=== PATIENT | male | born 1945 | race Caucasian/White ===

== ENCOUNTER 2018-02-21 15:36 | Outpatient (CLI) | payer BC ==
[2018-02-21 16:20] LABS: Mean Corpuscular HGB CONC 33.7 g/dL (32.0-36.0); Mean Corpuscular Hemoglobin 31.8 pg (27.0-31.0); Mean Corpuscular Volume 94.3 fl (80.0-94.0); Mean Platelet Volume 8.2 fL (7.4-10.4); Platelet Count 222 thou/uL (130-400); RBC Distribution Width 12.1 % (11.5-14.5); Red Blood Cell (RBC) Count 3.77 mill/uL (4.70-6.10); White Blood Cell (WBC) Count 6.3 thou/uL (4.8-10.8)
[2018-02-21 16:30] LABS: Bilirubin Negative (Negative); Blood, Urine Negative (Negative); Clarity CLEAR (Clear); Glucose, Urine (Dipstick) Negative (Negative); Leukocyte Negative (Negative); Nitrite Negative (Negative); Protein, Urine (Dipstick) Negative (Neg-Trace); Specific Gravity, Urine 1.022 (1.002-1.036); Urobilinogen 0.2 mg/dL (0.2-1.0); pH, Urine 6.5 (5.0-9.0)
[2018-02-21 16:32] LABS: Bacteria/HPF None Seen HPF (None Seen); Hyaline Casts/LPF 0-3 HYALINE CAST LPF (0-3 Hyaline); RBC/HPF 0-3 HPF (0-3); Squamous Epithelial None Seen HPF (0-3); WBC/HPF None Seen HPF (0-3)
[2018-02-21 16:33] LABS: PTT 28.9 SEC (22.9-36.1)
[2018-02-21 16:47] LABS: Anion Gap 13 mmol/L (10-20); BUN (Urea Nitrogen) 26 mg/dL (8.4-25.7); Calc. Creatinine Clearance 0 mL/min (70-130); Calcium 8.9 mg/dL (7.8-10.44); Carbon Dioxide 23 mmol/L (23-31); Chloride 107 mmol/L (98-107); Estimated GFR-MDRD 55; Glucose 89 mg/dL (83-110); Potassium 3.8 mmol/L (3.5-5.1); Sodium 139 mmol/L (136-145)
--- NOTE | 2018-02-25 08:47 | EKG ---
Test Reason : Blood Pressure : / mmHG Vent. Rate : 061 BPM Atrial Rate : 061 BPM P-R Int : 176 ms QRS Dur : 082 ms QT Int : 402 ms P-R-T Axes : 074 017 074 degrees QTc Int : 404 ms Normal sinus rhythm Normal ECG When compared with ECG of 26-MAY-2015 14:24, No significant change was found Confirmed by STEPHAN PLAZA MD ([id number]) on 02/25/2018 8:46:44 AM Referred By: MANI Confirmed By:STEPHAN PLAZA MD
== END 2018-02-21 15:37 | disposition home or self-care (01) ==
LOC: LABBT 15:36
PROVIDERS: ATTEND Urology
DX: Z01.818 Encounter for other preprocedural examination (principal); N40.1 Benign prostatic hyperplasia with lower urinary tract symptoms
CPT/HCPCS: 80048; 81001; 85027; 85610; 85730; 87086; 93005; 93010

== ENCOUNTER 2018-03-05 16:48 | Outpatient (CLI) | payer BC | END 2018-03-05 16:49 | disposition home or self-care (01) | LOC: LABBT 16:48 | PROVIDERS: ATTEND Urology | DX: Z01.818 Encounter for other preprocedural examination (principal); N40.1 Benign prostatic hyperplasia with lower urinary tract symptoms | CPT/HCPCS: 86850; 86900; 86901 ==

== ENCOUNTER 2018-03-08 07:12 | Observation (INO) | payer BC ==
[2018-02-21 16:10] VITALS: BMI 23.4
[2018-03-08] MEDS ORDERED: Levofloxacin 500 mg/D5W 100 ml Premix Bag ONE (09:24)
[2018-03-08] MEDS ORDERED: Fentanyl 250 MCG/5 ML VIAL ONE (09:59)
[2018-03-08] MEDS ORDERED: B & O ONE (11:24)
[2018-03-08] MEDS ORDERED: Mag-Al 1200 mg/1200 mg/30 ML UDCUP PO PRN (11:44)
[2018-03-08] MEDS ORDERED: Acetaminophen 500 MG TAB PO PRN (11:44)
[2018-03-08] MEDS ORDERED: hydrALAZINE 20 MG/ML VIAL SLOW IVP PRN (11:44)
[2018-03-08] MEDS ORDERED: Hyoscyamine Sulfate SL 0.125 mg Tablet SL PRN (11:44)
[2018-03-08] MEDS ORDERED: Oxybutynin 5 MG TAB PO PRN (11:44)
[2018-03-08] MEDS ORDERED: diphenhydrAMINE 25 MG CAP PO PRN (11:44)
[2018-03-08] MEDS ORDERED: Morphine 4 MG/ML VIAL SLOW IVP PRN ×2 (11:44)
[2018-03-08] MEDS ORDERED: Ondansetron HCl/PF 4 MG/2 ML Vial IVP PRN ×2 (11:44→13:02)
[2018-03-08] MEDS ORDERED: traMADol HCl 50 MG TAB PO PRN (11:50)
--- NOTE | 2018-03-08 11:59 | OP ---
DATE OF PROCEDURE: 03/08/2018 SURGEON: Guevara Cristobal M.D. PREOPERATIVE DIAGNOSIS: Benign prostatic hypertrophy. POSTOPERATIVE DIAGNOSIS: Benign prostatic hypertrophy. PROCEDURE PERFORMED: Transurethral vaporization of the prostate with button bipolar electrode. INDICATIONS FOR PROCEDURE: Mr. Taylor is a 72-year-old white male with BPH and significant urina ry symptoms, which are only partially alleviated with Flomax and finasteride. He no longer wishes to take these medications and has elected to go forward with transurethral vaporization of the prostate with a button electrode. Risks and benefits of surgery have been discussed and he has agreed to pro ceed forward. DESCRIPTION OF PROCEDURE: After identification of armband and verification of consent, the patient w as brought back to the operating room where he underwent general anesthesia with endotracheal intubat ion. He was then placed in dorsal lithotomy position and prepped and draped in usual sterile fashion . After appropriate timeout, the meatus was dilated gently using a Lilliam sounds from approximate ly 22 [place] up to 30 [place]. This allowed passage of a 26-Bolivian resectoscope sheath with visual ob turator easily into the bladder. 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 Once inside the bladder, th e visual obturator was removed and the bipolar gyrus button was attached and reinserted back into the bladder. Both ureters were noted to be in the orthotopic location. Vaporization was started on the lateral lobes on both sides and vaporized down to near the capsule. There was no significant median lobe, but there was a significant median ridge. A transurethral incision of the bladder neck was pe rformed with the button electrode until the bladder neck was flush with the remainder of the bladder. The intervening tissue was vaporized using the button electrode. Vaporization was carried out circ umferentially until we were near the capsule laterally and the floor of the prostate was flushed with the bladder. Some vaporization was carried out anteriorly for some overhanging tissue. Upon comple tion, the prostate was wide open. The prosthetic fossa was bipolared extensively with the coag funct ion to try for as much hemostasis as possible. Visualization back into the bladder demonstrated no p rostate chips and both ureters were unharmed in their orthotopic location. The bladder was left full and the resectoscope removed. A 22-[place] three-way Giles [facility] and 30 mL of sterile water placed into the balloon. CBI was initiated and the catheter affixed wi th a StatLock. A 16-A B&O suppository was placed in the patient's rectum. He was then taken out of lithotomy, awakened and taken to PACU for recovery in stable condition. COMPLICATIONS: None. ESTIMATED BLOOD LOSS: Minimal. RETAINED TUBES AND DRAINS: A 22-[place]iv[place] three-way Giles catheter. SPECIMENS: None. DISPOSITION: The patient will be kept in the hospital overnight observation for continuous bladder i rrigation. This will be stopped in the morning. He will undergo void trial and can be discharged ho ga afterwards.
[2018-03-08] MEDS ORDERED: Fentanyl 100 MCG/2 ML VIAL ONE ×2 (12:15→13:21)
[2018-03-08] MEDS ORDERED: Glycopyrrolate 0.2 MG/ML 5 ML SYRINGE ONE (12:57)
[2018-03-08] MEDS ORDERED: ePHEDrine/0.9% NaCl/PF SYRINGE 50 mg/10 ml ONE (12:57)
[2018-03-08] MEDS ORDERED: Lidocaine 1% PF 5 ML VIAL ONE (12:57)
[2018-03-08] MEDS ORDERED: Dexamethasone 20 MG/5 ML VIAL ONE (12:57)
[2018-03-08] MEDS ORDERED: PROPOFOL 200 MG/20 ML VIAL ONE (12:57)
[2018-03-08] MEDS ORDERED: Promethazine HCl 25 MG/ML VIAL IM PRN (13:02)
[2018-03-08] MEDS ORDERED: Promethazine HCl 25 MG/ML VIAL SLOW IVP PRN (13:02)
[2018-03-08] MEDS ORDERED: Promethazine HCl 25 MG/ML VIAL ONE (13:50)
[2018-03-08 14:26] LABS: Anion Gap 5 mmol/L (10-20); BUN (Urea Nitrogen) 20 mg/dL (8.4-25.7); Calc. Creatinine Clearance 60 mL/min (70-130); Carbon Dioxide 28 mmol/L (23-31); Chloride 108 mmol/L (98-107); Estimated GFR-MDRD 67; Glucose 103 mg/dL (83-110); Potassium 3.9 mmol/L (3.5-5.1); Sodium 137 mmol/L (136-145)
[2018-03-08] MEDS ORDERED: Icosapent Ethyl [Vascepa] 2 GM PO SCH (17:00)
[2018-03-08] MEDS ORDERED: UBIDECARENONE 20 MG PO SCH (21:00)
[2018-03-08] MEDS: NIFEdipine XL 30 MG TAB PO SCH (22:22)
[2018-03-08] MEDS: Docusate 100 MG CAP PO SCH (22:22)
[2018-03-09 05:01] LABS: #Lymphocytes 1.7 thou/uL (1.20-3.40); #Monocytes 0.9 thou/uL (0.11-0.59); #Neutrophils 7.9 thou/uL (1.40-6.50); %Basophils 0.1 % (0.0-1.0); %Eosinophils 0.3 % (0.0-10.0); %Lymphocytes 15.9 % (21.0-51.0); %Monocytes 8.5 % (0.0-10.0); %Neutrophils 75.2 % (42.0-75.0); Hemoglobin 11.7 g/dL (14.0-18.0); Mean Corpuscular HGB CONC 33.1 g/dL (32.0-36.0); Mean Corpuscular Volume 93.7 fl (80.0-94.0); Mean Platelet Volume 7.9 fL (7.4-10.4); Platelet Count 224 thou/uL (130-400); RBC Distribution Width 12.4 % (11.5-14.5); Red Blood Cell (RBC) Count 3.77 mill/uL (4.70-6.10); White Blood Cell (WBC) Count 10.5 thou/uL (4.8-10.8)
[2018-03-09 05:11] LABS: Anion Gap 9 mmol/L (10-20); BUN (Urea Nitrogen) 21 mg/dL (8.4-25.7); Calc. Creatinine Clearance 53 mL/min (70-130); Calcium 8.8 mg/dL (7.8-10.44); Carbon Dioxide 27 mmol/L (23-31); Chloride 104 mmol/L (98-107); Estimated GFR-MDRD 58; Glucose 117 mg/dL (83-110); Potassium 3.7 mmol/L (3.5-5.1); Sodium 136 mmol/L (136-145)
[2018-03-09] MEDS ORDERED: Levothyroxine Sodium 100 MCG TAB PO SCH (06:00)
[2018-03-09] MEDS ORDERED: Loratadine 10 MG TAB PO SCH (09:00)
[2018-03-09] MEDS: Docusate 100 MG CAP PO SCH (09:13)
[2018-03-09] MEDS: NIFEdipine XL 30 MG TAB PO SCH (09:14)
--- NOTE | 2018-03-09 09:16 | PRG ---
DATE OF SERVICE: 03/09/2018 SUBJECTIVE: The patient states he is doing very well. He had a few bladder spasms yesterday, but th ey had subsided overnight and he is not having any complaints. He has no pain, no shortness of breat h, chest pain, or any other concerning or problematic symptoms. His CBI was stopped this morning as per my instruction. OBJECTIVE: VITAL SIGNS: Temperature 97.5, pulse 69, respirations 16, blood pressure 133/76, saturation 97% on r oom air. GENERAL: No apparent distress, communicative and alert. CARDIOVASCULAR: Regular rate and rhythm. ABDOMEN: Soft, nontender, nondistended, positive bowel sounds. No suprapubic tenderness. GENITOURINARY: Giles catheter in place with CBI currently off. Urine is completely clear. EXTREMITIES: No clubbing, cyanosis or edema. LABORATORY DATA: A full set of labs are in the [facility] system, which I have reviewed. Of note, the patient's white count is 10.5, hemoglobin 11.7, creatinine today is 1.23 with a sodium of 136. ASSESSMENT AND PLAN: A 72-year-old white male with BPH and obstruction, status post transurethral va porization of the prostate, postop day 1. He is doing very well and his urine is clear. We will per form a voiding trial with urine collection. So long as he is able to void and his urine is not exces sively bloody he should be able to be discharged today. He no longer needs to take tamsulosin or fin asteride. The Cialis is optional. He may remain on it if he wishes for erectile dysfunction; diana acharya, it is not necessary for urinary symptoms at this point. I would like for him to also hold his asp irin until his urine is completely clear for 48 hours at which point he can resume. The remainder of the discharge instructions are included in the discharge instruction planning. A follow up currentl y scheduled for 03/19/2018 at 11:15. I will reevaluate the patient in the afternoon to ensure that h is urine is clear before his discharge.
[2018-03-09 12:04] VITALS: BP 134/81; TEMP 97.2
== END 2018-03-09 14:22 | disposition home or self-care (01) ==
LOC: SDC 07:12 → SURG A 14:18
PROVIDERS: ADMIT Urology; ATTEND Urology
PROC: 0V507ZZ Destruction of Prostate, Via Natural or Artificial Opening (ICD-10-PCS; principal; 2018-03-09)
DX: N40.1 Benign prostatic hyperplasia with lower urinary tract symptoms (principal); R39.12 Poor urinary stream; N52.01 Erectile dysfunction due to arterial insufficiency; I10 Essential (primary) hypertension; E07.9 Disorder of thyroid, unspecified; I25.10 Atherosclerotic heart disease of native coronary artery without angina pectoris; Z88.8 Allergy status to other drugs, medicaments and biological substances; Z95.5 Presence of coronary angioplasty implant and graft; Z98.890 Other specified postprocedural states; Z87.891 Personal history of nicotine dependence
CPT/HCPCS: 36415; 80048; 85025; 96374; 96375; G0378; J1100; J1956; J2001; J2550; J2704; J3010

== ENCOUNTER 2018-05-30 19:30 | Outpatient (CLI) | payer BC, MEDICARE | END 2018-05-30 19:31 | disposition home or self-care (01) | LOC: SLEEPLAB 19:30 | PROVIDERS: ATTEND Internal Medicine | DX: G47.33 Obstructive sleep apnea (adult) (pediatric) (principal); G47.31 Primary central sleep apnea; G47.10 Hypersomnia, unspecified; I10 Essential (primary) hypertension; E03.9 Hypothyroidism, unspecified; R06.83 Snoring; I25.10 Atherosclerotic heart disease of native coronary artery without angina pectoris; Z68.24 Body mass index [BMI] 24.0-24.9, adult | CPT/HCPCS: 95811 ==

== ENCOUNTER 2018-06-08 20:30 | Outpatient (CLI) | payer BC, MEDICARE | END 2018-06-08 20:31 | disposition home or self-care (01) | LOC: SLEEPLAB 20:30 | PROVIDERS: ATTEND Internal Medicine | DX: G47.33 Obstructive sleep apnea (adult) (pediatric) (principal); G47.10 Hypersomnia, unspecified; G47.31 Primary central sleep apnea; E66.9 Obesity, unspecified; Z68.24 Body mass index [BMI] 24.0-24.9, adult | CPT/HCPCS: 95811 ==